=== PATIENT | female | born 1965 | race Caucasian/White ===

== ENCOUNTER 2021-11-27 11:34 | Emergency (ER) | payer SELFPAY ==
[2021-11-27] MEDS ORDERED: Sodium Chloride 0.9% 1,000 ML IV ONE (11:50)
[2021-11-27] MEDS ORDERED: Ondansetron 4 MG/2 ML SDV IVPUSH ONE (11:50)
[2021-11-27] MEDS ORDERED: Meclizine 25 MG Tab PO ONE (12:16)
[2021-11-27 12:23] LABS: ANION GAP 15.8 mmol/L (5-15); CHLORIDE,CL 101 mmol/L (98-107); ESTIMATED GFR > 60; SODIUM,NA 139 mmol/L (136-145)
== END 2021-11-27 14:20 | disposition home or self-care (01) ==
LOC: VM.ED 11:34
DX: R42 Dizziness and giddiness (principal); Z88.5 Allergy status to narcotic agent; Z88.8 Allergy status to other drugs, medicaments and biological substances; Z72.0 Tobacco use
CPT/HCPCS: 70450; 80053; 81001; 84484; 85025; 86140; 93005; 96361; 96374; 99284; A9270; J2405; J7030

== ENCOUNTER 2022-03-04 07:41 | Emergency (ER) | payer BC ==
[2022-03-04] MEDS ORDERED: Meclizine 25 MG Tab PO ONE (08:10)
[2022-03-04] MEDS ORDERED: Labetalol 20 MG/4 ML Syringe IVPUSH ONE (08:16)
[2022-03-04] MEDS ORDERED: Sodium Chloride 0.9% 10 ML Syringe FLUSH PRN (08:16)
[2022-03-04 10:12] LABS: ANION GAP 14.8 mmol/L (5-15); CHLORIDE,CL 102 mmol/L (98-107); ESTIMATED GFR 66 mL/min (>=60); SODIUM,NA 138 mmol/L (136-145)
== END 2022-03-04 09:25 | disposition home or self-care (01) ==
LOC: VM.ED 07:41
DX: H81.12 Benign paroxysmal vertigo, left ear (principal); I16.9 Hypertensive crisis, unspecified; Z88.8 Allergy status to other drugs, medicaments and biological substances; Z88.5 Allergy status to narcotic agent; Z79.899 Other long term (current) drug therapy
CPT/HCPCS: 36415; 71045; 80053; 83735; 85025; 93005; 93010; 96374; 99284; 99284-25; A9270-GY; J3490

== ENCOUNTER 2024-11-19 08:17 | Emergency (ER) | payer BC | END 2024-11-19 09:34 | disposition home or self-care (01) | LOC: VM.ED 08:17 | DX: H81.12 Benign paroxysmal vertigo, left ear (principal); I10 Essential (primary) hypertension; Z88.8 Allergy status to other drugs, medicaments and biological substances | CPT/HCPCS: 97161-GP; 99283 ==